=== PATIENT | male | born 1990 | race African-American/Black ===

== ENCOUNTER 2017-02-06 13:39 | Emergency (ER) | payer SELFPAY ==
[~2017-02-06] VITALS: Ht 180.3 cm; Wt 47.6 kg
--- NOTE | 2017-02-06 14:00 | NUR ---
PT CAME IN FOR GENERALIZED WEAKNESS SINCE THIS AM. CAME FROM AN [facility] BUT WAS SENT HOME THEN PT REPORTS HE PASSED OUT AT HOME. DENIES HEAD AND NECK TRAUMA. PT ALSO REPORTS THAT HE FEELS "SICK" WITH CHILLS SINCE FRIDAY AND DECRESE IN APPETITE. SEEN BY FOR [facility]. VSS. SAFETY AND COMFORT MEASURES PROVIDED. WILL MONITOR.
[2017-02-06] MEDS ORDERED: IV SET PRIMARY 1 EA INFUS.SET MC ONE (14:09)
[2017-02-06] MEDS ORDERED: IV NS 0.9% 2,000 ML ONE (14:09)
[2017-02-06 14:14] LABS: BASOPHILS % (AUTO) 0.5 % (0.0-2.0); EOSINOPHILS % (AUTO) 0.2 % (0.0-6.0); HEMATOCRIT 40 % (39-51); LYMPHOCYTES # (AUTO) 0.8 /CMM (0.8-4.8); MEAN CORPUSCULAR HEMOGLOBIN 28 PG (26.0-33.0); MEAN CORPUSCULAR HGB CONC 33 g/dl (31.0-36.0); MEAN CORPUSCULAR VOLUME 86 fL (80-96); MONOCYTES # (AUTO) 0.5 /CMM (0.1-1.30); MONOCYTES % (AUTO) 19.1 % (2.0-12.0); NEUTROPHILS # (AUTO) 1.5 /CMM (1.8-8.9); NEUTROPHILS % (AUTO) 51.2 % (43.0-81.0); PLATELET COUNT (AUTO) 155 /CMM (150-450); RDW COEFFICIENT OF VARIATION 12.1 (11.5-15.0); RED BLOOD CELL COUNT(AUTO) 4.66 MIL/uL (4.5-6.0); WHITE BLOOD COUNT (AUTO) 2.9 K/uL (4.3-11.0)
[2017-02-06] MEDS: IV NS 0.9% 1,000 ML BAG IV ONE ×2 (14:16→14:17)
--- NOTE | 2017-02-06 14:21 | NUR ---
IV ACCESS STARTED. BLOOD DRAWN FOR LABS. PT MEDICATED ORDERED.
[2017-02-06 14:24] LABS: CALCIUM, SERUM 8.8 mg/dL (8.5-10.1); CREATININE 1.2 mg/dL (0.6-1.3); POTASSIUM 4.3 mmol/L (3.5-5.1)
[2017-02-06 14:30] LABS: ALBUMIN 4.1 g/dL (3.4-5.0); BILIRUBIN,DIRECT 0.2 mg/dL (0.0-0.2); BILIRUBIN,TOTAL 1.5 mg/dL (0.2-1.0); TOTAL PROTEIN, SERUM 7.7 g/dL (6.4-8.2)
[2017-02-06 14:57] LABS: LYMPHOCYTES % (MANUAL) 38 % (16-48); MONOCYTES % (MANUAL) 16 % (0-11.0); NEUTROPHILS % (MANUAL) 46 (42-76)
--- NOTE | 2017-02-06 15:30 | NUR ---
IV removed. Catheter intact and site benign. Pressure and 4x4 applied to site. No bleeding noted.
--- NOTE | 2017-02-06 15:39 | NUR ---
Patient discharged to home in stable condition. Written and verbal after care instructions given. Patient verbalizes understanding of instruction.
[2017-02-06 15:40] VITALS: BP 121/79
== END 2017-02-06 15:41 | disposition home or self-care (01) ==
LOC: ER 13:42
DX: R53.1 Weakness (principal)
CPT/HCPCS: 36415; 80048; 80076; 85025; 96360; 99284; A4606; J7030; Z7610